=== PATIENT | female | born 1990 | race African-American/Black ===

== ENCOUNTER 2017-09-23 18:49 | Emergency (ER) | payer MEDICAID ==
[~2017-09-23] VITALS: Ht 172.7 cm; Wt 68.0 kg
[~2017-09-23 18:49] MED LIST: AZITHROMYCIN500 MG ORAL; BACITRACIN15 GM TOPIC; BACTRIM DS TAB1 EAC1 ORAL; IBUPROFEN600 MG ORAL; MACROBID100 MG ORAL; NKM; PHENAZOPYRIDIN200 MG ORAL; TYLENOL EXTRA500 MG ORAL
[2017-09-23] MEDS ORDERED: Tetanus/Diptheria/Pertussis Vaccine 0.5ml Syr IM ONE (19:30)
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
[2017-09-23] MEDS ORDERED: TYLENOL EXTRA500 MG ORAL (20:39)
[2017-09-23] MEDS ORDERED: AUGMENTIN 875-1 EAC1 ORAL (20:39)
[2017-09-23 20:58] VITALS: BP 110/74
[2017-09-23 21:00] VITALS: BP 110/74
--- NOTE | 2017-09-24 08:54 | Diagnostic Imaging Report ---
Indication: Pain Technique: 3 views left hand Comparison: none Findings: No acute fractures. No dislocations. The joint spaces are preserved Impression: Negative
== END 2017-09-23 21:00 | disposition home or self-care (01) ==
LOC: EMR 19:52
DX: S61.011A Laceration without foreign body of right thumb without damage to nail, initial encounter (principal); W26.1XXA Contact with sword or dagger, initial encounter; Y93.89 Activity, other specified; Y92.018 Other place in single-family (private) house as the place of occurrence of the external cause; L03.114 Cellulitis of left upper limb; Z23 Encounter for immunization
CPT/HCPCS: 12001; 73130; 90471; 90715; 99284; Z7502